=== PATIENT | female | born 1990 | race American Indian/Alaskan Native ===

== ENCOUNTER 2019-01-23 08:07 | Emergency (ER) | payer OTHER ==
[2019-01-23 08:14] VITALS: BP 154/91
--- NOTE | 2019-01-23 08:55 | Emergency Department Report ---
ED Headache HPI - General Chief Complaint: Headache Stated Complaint: HBP Time Seen by Provider: 01/23/19 08:23 Source: patient - History of Present Illness Initial Comments: 28-year-old female with history of hypertension and diabetes presents to ED with headache 2 days. Patient states pain is frontal in nature, constant, associated with dizziness. Patient denies nausea, vomiting, fever. Patient s jose she was switched to labetalol from lisinopril because she was found to be , however she had a miscarriage. Patient remains on labetalol, and reports that she is compliant. [place] the headache initially began. EMS was called, she was evaluated and her blood pressure was elevated, 160s/100s. Timing/Duration: other (2 days) Quality: moderate Recent Head Trauma: no recent headache/trauma Modifying Factors: improves with: exposure to light Associated Symptoms: denies: confusion, fever/chills, loss of consciousness, nausea/vomiting, nasal congestion, numbness in legs/feet, stiff neck Allergies/Adverse Reactions: Allergies No Known Allergies Allergy (Unverified 01/23/19 08:09) Home Medications: Ambulatory Orders Butalb/Acetamin/Caff 50-325-40 [Fioricet] 1 tab PO Q6HR PRN #10 tab 01/23/19 Lisinopril [Zestril TAB] 20 mg PO QDAY #30 tablet 01/23/19 ED Review of Systems ROS: Stated complaint: HBP Other details as noted in HPI Comment: All other systems reviewed and negative Constitutional: denies: chills, fever Gastrointestinal: denies: nausea, vomiting Neurological: headache, other (reports dizziness). denies: weakness, numbness, paresthesias ED Past Medical Hx - Past Medical History Previous Medical History?: Yes Hx Hypertension: Yes Hx Diabetes: Yes - Surgical History Past Surgical History?: No - Social History Smoking Status: Never Smoker Substance Use Type: None - Medications Home Medications: Home Medications Medication Instructions Recorded Confirmed Last Taken Type Butalb/Acetamin/Caff 50-325-40 1 tab PO Q6HR PRN #10 tab 01/23/19 Unknown Rx [Fioricet] Lisinopril [Zestril TAB] 20 mg PO QDAY #30 tablet 01/23/19 Unknown Rx ED Physical Exam - General Limitations: No Limitations General appearance: alert, in no apparent distress, obese - Head Head exam: Present: atraumatic, normocephalic - Eye Eye exam: Present: normal appearance, PERRL, EOMI - ENT ENT exam: Present: mucous membranes moist - Neck Neck exam: Present: normal inspection, full ROM. Absent: tenderness, meningismus - Respiratory Respiratory exam: Present: normal lung sounds bilaterally. Absent: respiratory distress - Cardiovascular Cardiovascular Exam: Present: regular rate, normal rhythm - GI/Abdominal GI/Abdominal exam: Absent: distended - Extremities Exam Extremities exam: Present: normal inspection, full ROM - Neurological Exam Neurological exam: Present: alert, oriented X3, CN II-XII intact, normal gait. Absent: motor sensory deficit - Psychiatric Psychiatric exam: Present: normal affect, normal mood - Skin Skin exam: Present: warm, dry, intact, normal color ED Course Vital Signs 01/23/19 01/23/19 01/23/19 08:09 10:01 10:02 Temperature 97.9 F Pulse Rate 74 74 Respiratory 16 17 Rate Blood Pressure 154/91 154/91 O2 Sat by Pulse 98 Oximetry ED Medical Decision Making - Lab Data Result diagrams: 01/23/19 09:02 01/23/19 09:02 - Radiology Data Radiology results: report reviewed, image reviewed - Medical Decision Making - SAUER, elevated BP - no neuro deficits, neuro exam normal - CT negative - no evidence of renal dysfunction - will switch pt back to lisinopril since she states that was working well for her - spoke w/ pt about improtance of exercise, weight loss, and improving her diet - return precautions given - outpt f/u advised - Differential Diagnosis hypertensive SAUER, tension SAUER, Critical care attestation.: If time is entered above; I have spent that time in minutes in the direct care of this critically ill patient, excluding procedure time. ED Disposition Clinical Impression: Headache, acute, Essential hypertension Disposition: - TO HOME OR SELFCARE Is pt being admited?: No Condition: Stable Instructions: Hypertension (ED), Heart Healthy Diet (ED), Shopping for a Healthy Diet (ED), Weight Management (ED) Prescriptions: Butalb/Acetamin/Caff 50-325-40 [Fioricet] 1 tab PO Q6HR PRN #10 tab PRN Reason: Headache Lisinopril [Zestril TAB] 20 mg PO QDAY #30 tablet Referrals: LEAH TREADWELL MD [Primary Care Provider] - 3-5 Days Time of Disposition: 10:49
[2019-01-23 09:12] LABS: Bilirubin,Urine NEG (Negative); Blood,Urine LG (Negative); Color,Urine Yellow (Yellow); HCG Qualitative,Urine Negative (Negative); Mucus,Urine FEW /HPF; Protein,Urine <15 mg/dL mg/dL (Negative); Urobilinogen,Urine < 2.0 mg/dL (<2.0)
[2019-01-23 09:27] LABS: Basophils % (Auto) 0.5 % (0.0-1.8); Eosinophils # (Auto) 0.2 K/mm3 (0.0-0.4); Eosinophils % (Auto) 2.7 % (0.0-4.3); Hematocrit 37.7 % (30.3-42.9); Hemoglobin 12.8 gm/dl (10.1-14.3); Lymphocytes # (Auto) 2.3 K/mm3 (1.2-5.4); Lymphocytes % (Auto) 41.2 % (13.4-35.0); Mean Corpuscular HGB Conc 34 % (30-34); Mean Corpuscular Volume 87 fl (79-97); Monocytes # (Auto) 0.4 K/mm3 (0.0-0.8); Monocytes % (Auto) 7.1 % (0.0-7.3); Platelet Count 312 K/mm3 (140-440); Red Blood Count 4.32 M/mm3 (3.65-5.03); Red Cell Distribution Width 13.1 % (13.2-15.2)
[2019-01-23] MEDS ORDERED: FIORICET PO ONE (09:41)
[2019-01-23] MEDS ORDERED: ZESTRIL PO ONE (09:41)
[2019-01-23 09:42] LABS: BUN/Creatinine Ratio 20; Blood Urea Nitrogen 14 mg/dL (7-17); Calcium 8.7 mg/dL (8.4-10.2); Hemolysis Index 1
--- NOTE | 2019-01-23 10:35 | Cat Scan Report ---
CT HEAD WITHOUT CONTRAST: HISTORY: Headache, dizziness. TECHNIQUE: Sequential 2.5mm CT images. COMPARISON: none. FINDINGS: Cerebral Parenchyma: Within normal limits. Cerebellum: Within normal limits. Brainstem: Within normal limits. Ventricles: Normal. Sella: Normal. Extra-axial spaces: Normal. Basal Cisterns: Normal. Intracranial Hemorrhage: None. Midline Shift: None. Calvarium: Normal. Sinuses: Normal. Mastoid Air Cells: Normal. Visualized Orbits: Normal. IMPRESSION: Cranial CT scan within normal limits.
== END 2019-01-23 11:07 | disposition home or self-care (01) ==
LOC: ED 08:07
DX: I10 Essential (primary) hypertension (principal); E11.9 Type 2 diabetes mellitus without complications
CPT/HCPCS: 36415; 70450; 80048; 81001; 81025; 85025; 99284